=== PATIENT | male | born 1985 ===

== ENCOUNTER 2020-05-18 09:57 | Emergency (ER) | payer OTHER ==
[2020-05-18 10:06] VITALS: BP 114/72; PULSE 73; TEMP 98; BMI 30.4
[2020-05-18] MEDS ORDERED: NAPROXEN 500 MG TABLET PO ONE (10:27)
--- NOTE | 2020-05-18 10:32 | PDOC ---
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 Patient report pain to medial aspect to right knee with ambulation. Denies any pain when sitting down. Denies pain to anywhere else of the knee. Denies difficulty walking. Denies previous injury to knee. Patient has not taken anything for knee pain Occurred: reports: just prior to arrival Severity: reports: mild Pain Location: reports: lower extremity (right knee pain) Method of Injury: Yes: other (twisting knee) Modifying Factors: improves with: None Past History - Medical History Allergies/Adverse Reactions: Allergies Allergy/AdvReac Type Severity Reaction Status Date / Time No Known Allergies Allergy Verified 05/18/20 10:01 Home Medications: Ambulatory Orders Naproxen 500 mg PO BID PRN #20 tablet 05/18/20 COPD: No - Psycho-Social/Smoking History Smoking History: Never smoked Have you smoked in the past 12 months: No - Substance Abuse Hx (Audit-C & DAST Scrn) How often the patient has a drink containing alcohol: Monthly or less Number of drinks the patient has on a typical day: 1 or 2 How often the patient has six or more drinks on one occasion: Never Score: In Men: 4 or > Positive; In Women: 3 or > Positive: 1 Screen Result (Pos requires Nsg. Audit-10AR): Negative In the last yr the pt used illegal drug/Rx for NonMed reason: No Score: Yes response is considered Positive: 0 Screen Result (Positive result requires Nsg. DAST-10): Negative Review of Systems - Review of Systems Able to Perform ROS?: Yes Is the patient limited Amharic proficient: No Constitutional: No: Chills, Fever, Malaise HEENTM: No: Symptoms Reported Respiratory: No: Symptoms reported Cardiac (ROS): No: Symptoms Reported Musculoskeletal: Yes: Symptoms Reported, See HPI, Muscle Pain (medial right knee pain). No: Joint Swelling Integumentary: No: Symptoms Reported Neurological: No: Symptoms reported, Numbness, Tingling All Other Systems: Reviewed and Negative *Physical Exam - Vital Signs Last Vital Signs Temp Pulse Resp BP Pulse Ox 98 F 73 18 114/72 100 05/18/20 10:01 05/18/20 10:01 05/18/20 10:01 05/18/20 10:01 05/18/20 10:01 - Physical Exam 05/18/20 10:31 GENERAL: Well developed, well nourished. Awake and alert. No acute distress. PULMONARY: No evidence of respiratory distress. MUSCULOSKELETAL : mild point tenderness over medial collateral ligament of left knee otherwise unremarkable exam. No tenderness to anterior, posterior lateral aspect of right knee. Negative anterior and posterior drawer test of right knee. No visible swelling to knee. Patient walking with normal gait. SKIN: Warm and dry. Normal capillary refill. No bruising or swelling to right knee NEUROLOGICAL: Alert, awake, appropriate. No motor deficits in the lower extremities. Gait is normal without ataxia. PSYCHIATRIC: Cooperative. Good eye contact. Appropriate mood and affect. General Appearance: Yes: Nourished, Appropriately Dressed. 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 Patient report pain to medial aspect to right knee with ambulation. Denies any pain when sitting down. Denies pain to anywhere else of the knee. Denies difficulty walking. Denies previous injury to knee. Patient has not taken anything for knee pain Exam significant for mild point tenderness over medial collateral ligament of left knee otherwise unremarkable exam. No tenderness to anterior, posterior lateral aspect of right knee. Negative anterior and posterior drawer test of right knee. No visible swelling to knee. Patient walking with normal gait. Patient symptoms likely knee sprain versus less likely fracture. X-ray of right knee ordered to rule out acute abnormality. Naproxen 500 mg p.o. ordered for pain. Treat based on imaging results 05/18/20 11:12 X-ray right knee shows no acute abnormality. Patient symptoms likely knee sprain. Stable for discharge on naproxen as needed for pain and advised to do follow-up cold compresses with orthopedics follow-up. Right knee wrapped with Hiren bandage. Patient left department walking with normal gait Discharge - Discharge Information Problems reviewed: Yes Clinical Impression/Diagnosis: Right knee sprain Qualifiers: Encounter type: initial encounter Involved ligament of knee: unspecified ligament Qualified Code(s): S83.91XA - Sprain of unspecified site of right knee, initial encounter Condition: Stable Disposition: HOME - Admission No - Additional Discharge Information Prescriptions: Naproxen 500 mg PO BID PRN #20 tablet PRN Reason: knee pain - Follow up/Referral Referrals: Quentin Alvarado DO [Staff Physician] - - Patient Discharge Instructions Patient Printed Discharge Instructions: DI for Knee Sprain Additional Instructions: X-ray of your knee shows no acute abnormality. Your pain is likely from knee sprain. Take prescribed naproxen as needed for pain. Apply cold compress today switch to hot compress tomorrow as needed for swelling. Keep right leg elevated while at home. Follow-up referred orthopedics if symptoms persist for more than 3 days - Post Discharge Activity
[2020-05-18] MEDS ORDERED: NAPROXEN 500 MG TABLET ONE (10:58)
== END 2020-05-18 11:09 | disposition home or self-care (01) ==
LOC: JER 09:57 → JERFT 09:57
DX: S83.91XA Sprain of unspecified site of right knee, initial encounter (principal)
CPT/HCPCS: 73562-TC-RT-FY; 99283-25

== ENCOUNTER 2024-07-04 19:25 | Emergency (ER) | payer OTHER ==
[2024-07-04 19:29] VITALS: BP 142/89; PULSE 89; RESP 16; TEMP 97.6; BMI 28.8
== END 2024-07-04 20:00 | disposition home or self-care (01) ==
LOC: JERFT 19:25
DX: S83.91XA Sprain of unspecified site of right knee, initial encounter (principal); X50.1XXA Overexertion from prolonged static or awkward postures, initial encounter
CPT/HCPCS: 99283-25